=== PATIENT | female | born 1980 | race Caucasian/White ===

== ENCOUNTER 2021-10-25 13:12 | Observation (INO) | payer MEDICAID, MEDICARE ==
[~2021-10-25] VITALS: Ht 152.4 cm; Wt 76.2 kg
== END 2021-10-25 16:10 | disposition home or self-care (01) ==
LOC: 8 EST LDRP 13:12
PROVIDERS: ADMIT Obstetrics & Gynecology; ATTEND Obstetrics & Gynecology
DX: O26.853 Spotting complicating pregnancy, third trimester (principal); Z3A.38 38 weeks gestation of pregnancy
CPT/HCPCS: 59025; 76815; 76818; G0378